=== PATIENT | male | born 1980 | race Caucasian/White ===

== ENCOUNTER 2021-03-10 21:40 | Inpatient (IN) | payer MEDICAID ==
[~2021-03-10] VITALS: Ht 167.6 cm; Wt 159.7 kg
[2021-03-10 21:42] VITALS: BP 129/74
[2021-03-10] MEDS ORDERED: TYLENOL325 MG PO (21:52)
[2021-03-10] MEDS ORDERED: AMITRIPTYLINE H25 M4 PO (21:53)
[2021-03-10] MEDS ORDERED: IRON325 PO (21:53)
[2021-03-10] MEDS ORDERED: LIDODERM1 EACH TOP (21:54)
[2021-03-10] MEDS ORDERED: CLARITIN10 M3 PO (21:55)
[2021-03-10] MEDS ORDERED: METHOCARBAMOL750 MG PO (21:56)
[2021-03-10] MEDS ORDERED: OXYCODONE HCL E20 MG PO (21:57)
[2021-03-10] MEDS ORDERED: [UNRECOGNIZED DRUG - OTHER] TOP (21:57)
[2021-03-10] MEDS ORDERED: FLOMAX0.4 MG PO (21:58)
[2021-03-10] MEDS ORDERED: JANTOVEN1 MG PO (21:58)
[2021-03-10] MEDS ORDERED: NORCO7.5 PO (21:59)
[2021-03-10] MEDS ORDERED: PROAIR HFA8.5 GM INH (21:59)
[2021-03-10] MEDS ORDERED: NORVASC10 MG PO (22:00)
[2021-03-10] MEDS ORDERED: SENNA-DOCUSATE1 EAC1 PO (22:00)
[2021-03-10] MEDS ORDERED: FLONASE 0.05%50 MCG NARES (22:00)
[2021-03-10] MEDS ORDERED: OMEPRAZOLE40 MG PO (22:01)
[2021-03-10] MEDS ORDERED: NEURONTIN 300M300 M2 PO (22:01)
[2021-03-10] MEDS ORDERED: LORAZEPAM 0.50.5 MG PO (22:01)
[2021-03-10] MEDS ORDERED: OXYBUTYNIN 5 MG5 M1 PO (22:02)
[2021-03-10] MEDS ORDERED: ONDANSETRON ODT8 MG PO (22:02)
[2021-03-10] MEDS ORDERED: COMPAZINE10 MG PO (22:03)
[2021-03-10 22:42] LABS: ABSOLUTE BASOPHILS 0.1 thou/uL (0.0-0.2); ABSOLUTE EOSINOPHILS 0.3 thou/uL (0.0-0.7); ABSOLUTE LYMPHOCYTES 1.1 thou/uL (0.8-5.3); ABSOLUTE MONOCYTES 0.9 thou/uL (0.0-1.2); ABSOLUTE NEUTROPHILS 6.7 thou/uL (1.6-8.1); BASOPHILS 0.7 %; EOSINOPHILS 3.6 %; HEMATOCRIT 22.1 % (42.0-52.0); HEMOGLOBIN 7.2 gm/dL (14.0-18.0); LYMPHOCYTES 12.1 %; MCH 24.8 pg (26.0-34.0); MCHC 32.4 g/dL (28.0-37.0); MCV 76.4 fL (80.0-100.0); MONOCYTES 10.2 %; MPV 6.6 fl. (7.2-11.1); NUCLEATED RBCS 0 /100WBC; PLATELET COUNT* 580 thou/uL (150-400); POLYS 73.4 %; RBC 2.89 mil/uL (4.50-6.00); RDW-CV 18.1 % (10.5-14.5); WBC 9.1 thou/uL (4.0-11.0)
[2021-03-10 22:47] LABS: CALCIUM 8.4 mg/dL (8.5-10.1); CREATININE 1.3 mg/dL (0.6-1.3); POTASSIUM 3.6 mmol/L (3.5-5.1)
[2021-03-10 22:49] LABS: PROTIME 56.8 Seconds (9.20-11.50)
[2021-03-11 02:32] VITALS: BP 138/87
[2021-03-11 03:00] VITALS: BP 144/82
[2021-03-11 08:00] VITALS: BP 146/91
[2021-03-11 10:56] LABS: PROTIME 30.5 Seconds (9.20-11.50)
[2021-03-11 11:04] LABS: INR 3.1
[2021-03-11 11:30] VITALS: BP 128/80
[2021-03-11 13:36] LABS: % SATURATION 13 % (20-39); IRON 17 ug/dL (50-175)
[2021-03-11 15:44] VITALS: BP 139/82
[2021-03-11 20:00] VITALS: BP 103/61
[2021-03-12 00:34] VITALS: BP 110/62
[2021-03-12 04:55] VITALS: BP 105/60
[2021-03-12 09:00] VITALS: BP 131/78
--- NOTE | 2021-03-12 10:22 | EKG ---
[place] [address] ELECTROCARDIOGRAM REPORT Name: JAXON CALIXTO Room: [address] ADM IN M.R.#: [id number] Admission: 03/11/21 Attend Phys: Nadine Lmab MD Discharge: Date of : 84 Date of Service: 03/10/21 2145 Report #: [id number] THIS REPORT FOR: //name// [facility] ED Test Date: 2021-03-10 Test Time: 21:45:30 Pat Name: JAXON CALIXTO Department: Room: [address] Gender: M Power Operator: [place] : 1980 Requested By: Doreen Terry Order Number: [id number] Reading MD: Isaias Chinchilla Measurements Intervals [place] Rate: 103 P: DC: QRS: 5 QRSD: 120 T: -12 QT: 357 QTc: 468 Interpretive Statements sinus tachycardia IVCD, consider atypical RBBB Inferior infarct, old Baseline wander in lead(s) II,III,aVF,V1,V3,V4,V5,V6 No previous ECG available for comparison Electronically Signed On 03-12-2021 10:22:40 CDT by Isaias Chinchilla [email or web address] <ELECTRONICALLY SIGNED> By: Isaias Chinchilla MD, FAC 03/12/21 1022 2145 Isaias Chinchilla MD, FAC /EPI
[2021-03-12 12:00] VITALS: BP 125/75
[2021-03-12 16:00] VITALS: BP 140/85
[2021-03-12 20:00] VITALS: BP 125/76
[2021-03-13] VITALS: BP 129/72
[2021-03-13 04:59] VITALS: BP 128/83
[2021-03-13 08:00] VITALS: BP 155/80
[2021-03-13 10:38] LABS: ABSOLUTE EOSINOPHILS 0.6 thou/uL (0.0-0.7); ABSOLUTE LYMPHOCYTES 1.1 thou/uL (0.8-5.3); ABSOLUTE MONOCYTES 0.8 thou/uL (0.0-1.2); ABSOLUTE NEUTROPHILS 6.6 thou/uL (1.6-8.1); BASOPHILS 0.5 %; EOSINOPHILS 6.5 %; LYMPHOCYTES 11.7 %; MCH 25.2 pg (26.0-34.0); MCHC 32.4 g/dL (28.0-37.0); MCV 77.9 fL (80.0-100.0); MONOCYTES 8.4 %; MPV 6.5 fl. (7.2-11.1); NUCLEATED RBCS 0 /100WBC; PLATELET COUNT* 575 thou/uL (150-400); POLYS 72.9 %; RBC 2.27 mil/uL (4.50-6.00); RDW-CV 18.3 % (10.5-14.5); WBC 9.1 thou/uL (4.0-11.0)
[2021-03-13 10:42] LABS: HEMOGLOBIN 5.7 gm/dL (14.0-18.0)
[2021-03-13 10:43] LABS: HEMATOCRIT 17.7 % (42.0-52.0)
[2021-03-13 10:50] LABS: PROTIME 11.9 Seconds (9.20-11.50)
[2021-03-13 10:51] LABS: INR 1.1
[2021-03-13 11:55] VITALS: BP 118/67
[2021-03-13 17:20] VITALS: BP 129/63
[2021-03-13 20:00] VITALS: BP 132/74
[2021-03-14 04:23] VITALS: BP 148/79
[2021-03-14 08:00] VITALS: BP 152/72
[2021-03-14] MEDS ORDERED: XARELTO1 EACH PO ×2 (10:42→10:43)
[2021-03-14 12:00] VITALS: BP 145/86
[2021-03-14 12:52] VITALS: BP 152/72
== END 2021-03-14 14:58 | disposition home or self-care (01) | DRG 918 ==
LOC: M.ERS 21:40 → M.TBA-ER 03-11 00:21 → M.2W 03-11 03:02
PROVIDERS: Emergency Medicine; Internal Medicine; ADMIT Family Medicine; ATTEND Family Medicine
DX: T45.514A Poisoning by anticoagulants, undetermined, initial encounter (principal); D62 Acute posthemorrhagic anemia; S20.212A Contusion of left front wall of thorax, initial encounter; M54.5 Low back pain; Z20.822 Contact with and (suspected) exposure to COVID-19; S20.211A Contusion of right front wall of thorax, initial encounter; G89.29 Other chronic pain; Z86.718 Personal history of other venous thrombosis and embolism; Z93.6 Other artificial openings of urinary tract status; Z91.040 Latex allergy status; Q05.9 Spina bifida, unspecified; Z85.51 Personal history of malignant neoplasm of bladder; Y92.89 Other specified places as the place of occurrence of the external cause; X58.XXXA Exposure to other specified factors, initial encounter; Y93.89 Activity, other specified; Y99.8 Other external cause status

== ENCOUNTER 2021-10-16 02:25 | Emergency (ER) | payer MEDICAID ==
[~2021-10-16] VITALS: Ht 167.6 cm; Wt 145.2 kg
[~2021-10-16 02:25] MED LIST: AMITRIPTYLINE H25 M4 PO; CLARITIN10 M3 PO; COMPAZINE10 MG PO; FLOMAX0.4 MG PO; FLONASE 0.05%50 MCG NARES; IRON325 PO; JANTOVEN1 MG PO; LIDODERM1 EACH TOP; LORAZEPAM 0.50.5 MG PO; METHOCARBAMOL750 MG PO; NEURONTIN 300M300 M2 PO; NORCO7.5 PO; NORVASC10 MG PO; OMEPRAZOLE40 MG PO; ONDANSETRON ODT8 MG PO; OXYBUTYNIN 5 MG5 M1 PO; OXYCODONE HCL E20 MG PO; PROAIR HFA8.5 GM INH; SENNA-DOCUSATE1 EAC1 PO; TYLENOL325 MG PO; XARELTO1 EACH PO; [UNRECOGNIZED DRUG - OTHER] TOP
[2021-10-16 02:55] LABS: ABSOLUTE BASOPHILS 0.1 thou/uL (0.0-0.2); ABSOLUTE EOSINOPHILS 0.5 thou/uL (0.0-0.7); ABSOLUTE LYMPHOCYTES 1.4 thou/uL (0.8-5.3); ABSOLUTE MONOCYTES 0.7 thou/uL (0.0-1.2); ABSOLUTE NEUTROPHILS 11.1 thou/uL (1.6-8.1); BASOPHILS 0.4 %; EOSINOPHILS 3.3 %; HEMATOCRIT 33.3 % (42.0-52.0); HEMOGLOBIN 10.6 gm/dL (14.0-18.0); MCH 27.5 pg (26.0-34.0); MCHC 31.9 g/dL (28.0-37.0); MCV 86.3 fL (80.0-100.0); MONOCYTES 5.4 %; MPV 6.6 fl. (7.2-11.1); NUCLEATED RBCS 0 /100WBC; PLATELET COUNT* 577 thou/uL (150-400); POLYS 80.9 %; RBC 3.86 mil/uL (4.50-6.00); RDW-CV 17.2 % (10.5-14.5); WBC 13.7 thou/uL (4.0-11.0)
[2021-10-16] MEDS ORDERED: AZITHROMYCIN500 MG PO (02:56)
[2021-10-16] MEDS ORDERED: AZITHROMYC200 MG/52 PO (02:56)
[2021-10-16] MEDS ORDERED: AUGMENTIN XR 11 EACH PO (02:57)
[2021-10-16] MEDS ORDERED: PREDNISONE 20 M20 MG PO (02:58)
[2021-10-16] MEDS ORDERED: FLOVENT HFA10.6 GM INH (02:58)
[2021-10-16 03:09] LABS: CALCIUM 8.1 mg/dL (8.5-10.1); CREATININE 1.4 mg/dL (0.6-1.3); POTASSIUM 3.5 mmol/L (3.5-5.1)
[2021-10-16 03:13] LABS: ALBUMIN 2.8 g/dL (3.4-5.0); MAGNESIUM 1.7 mg/dL (1.8-2.4); TOTAL BILIRUBIN 0.9 mg/dL (<0.1-1.0); TOTAL PROTEIN 7.6 g/dL (6.4-8.2)
[2021-10-16 03:47] LABS: AMP/METHAMP Negative (Negative); BARBITURATES Negative (Negative); BENZODIAZEPINES Negative (Negative); COCAINE Negative (Negative); METHADONE Negative (Negative); OPIATES POSITIVE (Negative); PCP Negative (Negative); THC Negative (Negative)
[2021-10-16 03:50] LABS: INFLUENZA A ANTIGEN Negative (Negative); INFLUENZA B ANTIGEN Negative (Negative)
[2021-10-16 04:00] LABS: URINE BILIRUBIN NEGATIVE (Negative); URINE BLOOD 3+ (Negative); URINE CLARITY SL CLOUDY; URINE COLOR RED; URINE GLUCOSE-RANDOM NEGATIVE (Negative); URINE KETONES NEGATIVE (Negative); URINE LEUKOCYTES-REFLEX NEGATIVE (Negative); URINE NITRITE-REFLEX NEGATIVE (Negative); URINE PROTEIN 2+ (Negative); URINE SPECIFIC GRAVITY >= 1.030 (1.005-1.030)
[2021-10-16 04:07] LABS: SQUAMOUS NONE SEEN /LPF (0-3)
[2021-10-16 04:08] LABS: CASTS None Seen /LPF (None Seen); CRYSTALS None Seen /LPF (None Seen); URINE RBC >20 Many /HPF (0-2); YEAST-REFLEX Present (None Seen)
[2021-10-16] MEDS ORDERED: LEVOFLOXACIN750 MG PO (06:24)
[2021-10-16 08:22] VITALS: BP 102/64
--- NOTE | 2021-10-16 08:41 | EKG ---
[place] [address] ELECTROCARDIOGRAM REPORT Name: JAXON CALIXTO Room: [facility]#: [id number] Admission: 10/16/21 Attend Phys: Discharge: 10/16/21 Date of : 84 Date of Service: 10/16/21 023 Report #: [id number] THIS REPORT FOR: //name// [facility] ED Test Date: 2021-10-16 Test Time: 02:31:36 Pat Name: JAXON CALIXTO Department: Room: Gender: Operator [employer]: [place] : 1980 Requested By: Doreen Terry Order Number: [id number] MD: Jesus Quijano Measurements Intervals [place] Rate: 124 P: 41 [place]: 145 QRS: 4 QRSD: 113 T: 27 QT: 314 QTc: 451 Interpretive Statements Sinus tachycardia Borderline intraventricular conduction delay Compared to ECG 03/10/2021 21:45:30 Myocardial infarct finding no longer present Electronically Signed On 10-16-2021 8:40:57 CHIEF ACCOUNTANT by Jesus Quijano [email or web address] <ELECTRONICALLY SIGNED> By: Jesus Quijano MD, [facility] 10/16/21 0840 0231 023 Jesus Quijano MD, [facility] /EPI
== END 2021-10-16 08:23 | disposition home or self-care (01) ==
LOC: M.ERS 02:25
PROVIDERS: Emergency Medicine
DX: J18.9 Pneumonia, unspecified organism (principal); Z20.822 Contact with and (suspected) exposure to COVID-19; Z91.040 Latex allergy status; Z86.718 Personal history of other venous thrombosis and embolism; Z85.51 Personal history of malignant neoplasm of bladder; Z93.6 Other artificial openings of urinary tract status; Z79.899 Other long term (current) drug therapy; Z79.2 Long term (current) use of antibiotics